=== PATIENT | male | born 2000 | race Caucasian/White ===

== ENCOUNTER 2018-01-05 12:52 | Emergency (ER) | payer OTHER ==
[~2018-01-05] VITALS: Ht 177.8 cm; Wt 79.4 kg
[2018-01-05 12:56] VITALS: BP 135/90
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
[2018-01-05] MEDS ORDERED: HYDROcodone/APAP 5/325 MG 1 TAB TAB PO ONE (13:10)
[2018-01-05] MEDS ORDERED: cefTRIAXone 1,000 MG in LIDOCAINE 1% ***ER ONLY *** 2.1 ML IM ONE (13:10)
[2018-01-05] MEDS ORDERED: cefTRIAXone 1,000 MG VIAL ONE (13:26)
[2018-01-05] MEDS ORDERED: LIDOCAINE MPF 1% - **ER/OR** 5 ML ONE (13:29)
[2018-01-05] MEDS ORDERED: BACITRACIN OINT 500 UNITS/GM PKT TP ONE (13:32)
[2018-01-05] MEDS ORDERED: NEOMYCIN/POLYMYXIN/BACITRACIN 0.9 GM/1 PKT TP ONE (13:33)
--- NOTE | 2018-01-05 14:00 | NUR ---
Patient appears to be resting comfortably in bed. Vital Signs within normal limits. Respirations even and unlabored.
[2018-01-05 15:05] VITALS: BP 135/90
--- NOTE | 2018-01-05 15:05 | NUR ---
Patient discharged with v/s stable. Written and verbal after care instructions given and explained. Patient alert, oriented and verbalized understanding of instructions. Ambulatory with steady gait. All questions addressed prior to discharge. ID band removed. Patient advised to follow up with PMD. Rx of MOTRIN AND AUGMENTIN given. Patient educated on indication of medication including possible reaction and side effects. Opportunity to ask questions provided and answered.
[2018-01-06 15:09] LABS: HEPATITIS B SURFACE ANTIGEN Negative (Negative)
== END 2018-01-05 15:05 | disposition home or self-care (01) ==
LOC: MED 12:52
DX: S51.852A Open bite of left forearm, initial encounter (principal); J45.909 Unspecified asthma, uncomplicated; Z77.21 Contact with and (suspected) exposure to potentially hazardous body fluids; Y04.1XXA Assault by human bite, initial encounter; Y93.89 Activity, other specified; Y92.512 Supermarket, store or market as the place of occurrence of the external cause; Y99.0 Civilian activity done for income or pay
CPT/HCPCS: 36415; 86592; 86702; 86803; 87340; 90471; 90715; 96372; 99284; J0696; J2001